=== PATIENT | female | born 1965 | race Caucasian/White ===

== ENCOUNTER 2024-02-07 23:26 | Inpatient (IN) | payer MEDICAID ==
[~2024-02-07] VITALS: Ht 154.9 cm; Wt 51.0 kg
[2024-02-07 23:28] VITALS: BP_SYST 119; PULSE 113; RESP 20; TEMP 98.6; O2SAT 98
[2024-02-08] MEDS: NACL 0.9% 1,000 ML IV ONE (00:37)
[2024-02-08 00:39] LABS: BASOPHILS % (AUTO) 0.2 % (0.0-2.0); EOSINOPHILS % (AUTO) 0.1 % (0.0-4.0); HEMATOCRIT 35.4 % (36-48); HEMOGLOBIN 11.9 g/dL (12.0-16.0); LYMPHOCYTES # (AUTO) 0.2 K/uL (1.0-5.5); LYMPHOCYTES % (AUTO) 2.9 % (20.5-51.5); MEAN CORPUSCULAR HEMOGLOBIN 30 pg (27-31); MEAN CORPUSCULAR HGB CONC 34 % (32-36); MEAN CORPUSCULAR VOLUME 90 fL (79.0-98.0); MONOCYTES # (AUTO) 0.4 K/uL (0.0-1.0); MONOCYTES % (AUTO) 4.9 % (1.7-9.3); NEUTROPHILS % (AUTO) 91.9 % (40.0-70.0); PLATELET COUNT (AUTO) 212 K/uL (130-430); RED BLOOD CELL COUNT(AUTO) 3.95 MIL/uL (4.2-6.2); RED CELL DISTRIBUTION WIDTH 14.9 % (9.0-15.0); WHITE BLOOD COUNT (AUTO) 7.7 K/uL (4.8-10.8)
[2024-02-08 00:40] LABS: BLOOD GAS PH 7.409 (7.350-7.450)
[2024-02-08 00:41] LABS: ABG O2 SAT% ESTIMATE 95.9 % (94.0-100.0); BLOOD GAS BASE EXCESS -5.2 mmol/L (-3.0-3.0); BLOOD GAS HCO3 18.4 mmol/L (21.0-27.0); BLOOD GAS PCO2 29.7 mmHg (35.0-45.0); BLOOD GAS PO2 78.2 mmHg (75.0-100.0)
[2024-02-08 01:18] LABS: BILIRUBIN,URINE NEGATIVE (NEGATIVE); CLARITY/URINE CLEAR (CLEAR); COLOR,URINE YELLOW (YELLOW); GLUCOSE,URINE 3+ (NEGATIVE); KETONES,URINE 2+ (NEGATIVE); LEUKOCYTE ESTERASE ,URINE NEGATIVE (NEGATIVE); NITRITE, URINE NEGATIVE (NEGATIVE); PROTEIN URINE 1+ (NEGATIVE); UROBILINOGEN,URINE 0.2 (0.2-1.0)
[2024-02-08 01:27] LABS: BLOOD, URINE TRACE (NEGATIVE)
[2024-02-08 01:41] LABS: ALANINE AMINOTRANSFERASE 26 U/L (12-78); ANION GAP 16 (5-15); ASPARTATE AMINOTRANSFERASE 14 U/L (10-37); BILIRUBIN,DIRECT 0.1 mg/dL (0.0-0.3); CALCIUM 10.8 mg/dL (8.4-11.0); CARBON DIOXIDE 21 mmol/L (23-29); CHLORIDE 90 mmol/L (98-107); GFR AFRICAN AMERICAN 83 mL/min (>90); LIPASE 18 U/L (16-77); POTASSIUM 4.2 mmol/L (3.5-5.1); SODIUM SERUM 127 mmol/L (136-145); TOTAL BILIRUBIN 0.5 mg/dL (0.0-1.0); TOTAL PROTEIN, SERUM 8.1 g/dL (6.4-8.3); UREA NITROGEN, BLOOD 27 mg/dL (8-21)
[2024-02-08 01:42] LABS: GFR NON AFRICAN-AMERICAN 69 mL/min (>90)
[2024-02-08 01:43] LABS: GLUCOSE 467 mg/dL (74-106)
[2024-02-08 01:52] LABS: ACETONE, SERUM MODERATE (NEGATIVE)
[2024-02-08 01:57] LABS: BACTERIA,URINE None Seen /HPF (None Seen); RBC,URINE 20-50 /HPF (0-3)
[2024-02-08] MEDS ORDERED: ONDANSETRON HCL 4 MG/2 ML VIAL IVP PRN ×2 (02:00→07:45)
[2024-02-08] MEDS ORDERED: ATOR20TA64 PO (02:10)
[2024-02-08] MEDS ORDERED: METF-379 PO (02:10)
[2024-02-08] MEDS ORDERED: INSULIN REGULAR, HUMAN 10 UNITS/0.1 ML, 3 ML VIAL ONE ×3 (03:59→12:45)
[2024-02-08] MEDS: INSULIN REGULAR, HUMAN 100 UNITS/ML, 3 ML VIAL (humuLIN R) SUBCUT PRN (04:01)
[2024-02-08] MEDS ORDERED: MUPIROCIN 2% TOPICAL OINTMENT 22 GM NS PRN (07:45)
[2024-02-08] MEDS ORDERED: NALOXONE HCL 0.4 MG/ML AMP (NARCAN) IVP PRN ×2 (07:45)
[2024-02-08] MEDS ORDERED: ZOLPIDEM TARTRATE 5 MG TABLET PO PRN (07:45)
[2024-02-08] MEDS ORDERED: MORPHINE 2 MG/ML INJ. SYRINGE IVP PRN (07:45)
[2024-02-08] MEDS ORDERED: LORazepam 2 MG/ML VIAL IVP PRN (07:45)
[2024-02-08] MEDS ORDERED: MAGNESIUM SULFATE 50 ML IV PRN (07:45)
[2024-02-08] MEDS: NACL 0.9% 1,000 ML IV SCH (08:30)
[2024-02-08] MEDS ORDERED: ATORVASTATIN 20 MG TABLET PO SCH (09:00)
[2024-02-08] MEDS ORDERED: ATORVASTATIN 20 MG TABLET PO ONE (09:00)
[2024-02-08 11:20] LABS: INR 0.9 (0.8-1.2); PROTHROMBIN TIME 9.7 SECS (9.5-12.5)
[2024-02-08] MEDS: HEPARIN SODIUM,PORCINE 5,000 UNITS/ML VIAL SUBCUT SCH (11:40)
[2024-02-08] MEDS: MORPHINE 2 MG/ML INJ. SYRINGE IVP PRN ×2 (12:42→21:08)
[2024-02-08] MEDS: ATORVASTATIN 20 MG TABLET PO ONE (15:13)
[2024-02-08 18:54] VITALS: BP_SYST 138; PULSE 113; RESP 16; TEMP 98.4; O2SAT 95
[2024-02-08] MEDS: INSULIN GLARGINE 100 UNITS/ML, 10 ML VIAL SUBCUT SCH (21:31)
[2024-02-08 23:30] VITALS: BP_SYST 130; PULSE 94; RESP 19; TEMP 98; O2SAT 98
[2024-02-09] VITALS (7 sets, daily range): BP systolic 118–144; PULSE 90–110; RESP 16–17; TEMP 98.1–100.2; O2SAT 95–97
[2024-02-09 06:29] LABS: CALCIUM 9.3 mg/dL (8.4-11.0); CREATININE 0.53 mg/dL (0.55-1.30)
[2024-02-09 06:30] LABS: BASOPHILS % (AUTO) 0.3 % (0.0-2.0); EOSINOPHILS % (AUTO) 0.7 % (0.0-4.0); HEMATOCRIT 32.1 % (36-48); HEMOGLOBIN 10.8 g/dL (12.0-16.0); LYMPHOCYTES # (AUTO) 0.3 K/uL (1.0-5.5); LYMPHOCYTES % (AUTO) 7.8 % (20.5-51.5); MEAN CORPUSCULAR HEMOGLOBIN 30 pg (27-31); MEAN CORPUSCULAR HGB CONC 34 % (32-36); MEAN CORPUSCULAR VOLUME 89 fL (79.0-98.0); MONOCYTES # (AUTO) 0.3 K/uL (0.0-1.0); MONOCYTES % (AUTO) 7.4 % (1.7-9.3); NEUTROPHILS # (AUTO) 3.6 K/uL (1.8-7.7); NEUTROPHILS % (AUTO) 83.8 % (40.0-70.0); PLATELET COUNT (AUTO) 152 K/uL (130-430); RED BLOOD CELL COUNT(AUTO) 3.63 MIL/uL (4.2-6.2); RED CELL DISTRIBUTION WIDTH 14.9 % (9.0-15.0); WHITE BLOOD COUNT (AUTO) 4.3 K/uL (4.8-10.8)
[2024-02-09] MEDS ORDERED: cloNIDine HCL 0.1 MG TABLET PO ONE (06:45)
[2024-02-09] MEDS: ATORVASTATIN 20 MG TABLET PO SCH (08:14)
[2024-02-09] MEDS: ACETAMINOPHEN 325 MG TABLET PO PRN (08:15)
[2024-02-09] MEDS: cefTRIAXone 1 GM IVPB PREMIX 50 ML IV SCH (14:44)
[2024-02-09] MEDS: INSULIN GLARGINE 100 UNITS/ML, 10 ML VIAL SUBCUT SCH (20:57)
[2024-02-10] VITALS: BP_SYST 118; PULSE 99; RESP 16; TEMP 99; O2SAT 96
[2024-02-10 06:17] LABS: BASOPHILS % (AUTO) 0.4 % (0.0-2.0); EOSINOPHILS # (AUTO) 0.1 K/uL (0.0-0.4); HEMATOCRIT 30.8 % (36-48); HEMOGLOBIN 10.2 g/dL (12.0-16.0); LYMPHOCYTES # (AUTO) 0.5 K/uL (1.0-5.5); LYMPHOCYTES % (AUTO) 8.1 % (20.5-51.5); MEAN CORPUSCULAR HEMOGLOBIN 29 pg (27-31); MEAN CORPUSCULAR HGB CONC 33 % (32-36); MEAN CORPUSCULAR VOLUME 88 fL (79.0-98.0); MONOCYTES # (AUTO) 0.6 K/uL (0.0-1.0); MONOCYTES % (AUTO) 10.3 % (1.7-9.3); NEUTROPHILS # (AUTO) 4.7 K/uL (1.8-7.7); NEUTROPHILS % (AUTO) 80.2 % (40.0-70.0); PLATELET COUNT (AUTO) 160 K/uL (130-430); RED BLOOD CELL COUNT(AUTO) 3.49 MIL/uL (4.2-6.2); RED CELL DISTRIBUTION WIDTH 14.9 % (9.0-15.0); WHITE BLOOD COUNT (AUTO) 5.9 K/uL (4.8-10.8)
[2024-02-10 06:50] LABS: CALCIUM 9.2 mg/dL (8.4-11.0); CREATININE 0.52 mg/dL (0.55-1.30)
[2024-02-10 07:53] LABS: POTASSIUM 2.7 mmol/L (3.5-5.1)
[2024-02-10 10:00] VITALS: O2SAT 99
[2024-02-10 11:47] VITALS: BP_SYST 116; PULSE 91; RESP 16; TEMP 97.7; O2SAT 96
[2024-02-10] MEDS: POTASSIUM CHLORIDE 20 MEQ TABLET.ER PO PRN (12:49)
[2024-02-10] MEDS: KCL 20 mEq in 100 mL (PREMIX) 200 ML IV SCH (12:49)
[2024-02-10] MEDS: POTASSIUM CHLORIDE 10 MEQ TABLET.ER PO ONE (13:06)
[2024-02-10 16:00] VITALS: BP_SYST 121; PULSE 84; RESP 17; TEMP 98; O2SAT 95
[2024-02-10 20:00] VITALS: BP_SYST 119; PULSE 92; RESP 18; TEMP 97.9; O2SAT 96
[2024-02-10 21:50] VITALS: O2SAT 96
[2024-02-11] VITALS: BP_SYST 123; PULSE 92; RESP 18; TEMP 97.4; O2SAT 96
[2024-02-11 07:16] LABS: CALCIUM 8.7 mg/dL (8.4-11.0); CREATININE 0.48 mg/dL (0.55-1.30); POTASSIUM 3.8 mmol/L (3.5-5.1)
[2024-02-11 07:22] LABS: BASOPHILS % (AUTO) 0.3 % (0.0-2.0); EOSINOPHILS # (AUTO) 0.1 K/uL (0.0-0.4); EOSINOPHILS % (AUTO) 1.2 % (0.0-4.0); HEMATOCRIT 30.3 % (36-48); HEMOGLOBIN 10.2 g/dL (12.0-16.0); LYMPHOCYTES # (AUTO) 0.7 K/uL (1.0-5.5); LYMPHOCYTES % (AUTO) 7.7 % (20.5-51.5); MEAN CORPUSCULAR HEMOGLOBIN 30 pg (27-31); MEAN CORPUSCULAR HGB CONC 34 % (32-36); MEAN CORPUSCULAR VOLUME 89 fL (79.0-98.0); MONOCYTES # (AUTO) 0.8 K/uL (0.0-1.0); NEUTROPHILS # (AUTO) 7.1 K/uL (1.8-7.7); NEUTROPHILS % (AUTO) 81.8 % (40.0-70.0); PLATELET COUNT (AUTO) 226 K/uL (130-430); RED BLOOD CELL COUNT(AUTO) 3.43 MIL/uL (4.2-6.2); RED CELL DISTRIBUTION WIDTH 15.1 % (9.0-15.0); WHITE BLOOD COUNT (AUTO) 8.6 K/uL (4.8-10.8)
[2024-02-11 08:14] VITALS: BP_SYST 131; PULSE 89; RESP 18; TEMP 96.6; O2SAT 97
[2024-02-11 08:28] VITALS: O2SAT 97
[2024-02-11 11:20] VITALS: BP_SYST 108; PULSE 83; RESP 16; TEMP 98.3; O2SAT 97
[2024-02-11 15:20] VITALS: BP_SYST 118; PULSE 88; RESP 16; TEMP 97.5; O2SAT 96
[2024-02-11] MEDS: DOCUSATE SODIUM 100 MG CAPSULE PO PRN (17:14)
[2024-02-11 19:45] VITALS: BP_SYST 128; PULSE 89; RESP 18; TEMP 97.2; O2SAT 97
[2024-02-12] VITALS: BP_SYST 119; PULSE 94; RESP 16; TEMP 98.7; O2SAT 95
[2024-02-12 07:34] LABS: BASOPHILS % (AUTO) 0.4 % (0.0-2.0); EOSINOPHILS # (AUTO) 0.1 K/uL (0.0-0.4); EOSINOPHILS % (AUTO) 0.8 % (0.0-4.0); HEMATOCRIT 29.6 % (36-48); HEMOGLOBIN 9.8 g/dL (12.0-16.0); LYMPHOCYTES # (AUTO) 0.8 K/uL (1.0-5.5); LYMPHOCYTES % (AUTO) 7.4 % (20.5-51.5); MEAN CORPUSCULAR HEMOGLOBIN 29 pg (27-31); MEAN CORPUSCULAR HGB CONC 33 % (32-36); MEAN CORPUSCULAR VOLUME 88 fL (79.0-98.0); MONOCYTES # (AUTO) 0.5 K/uL (0.0-1.0); MONOCYTES % (AUTO) 4.7 % (1.7-9.3); NEUTROPHILS % (AUTO) 86.7 % (40.0-70.0); PLATELET COUNT (AUTO) 302 K/uL (130-430); RED BLOOD CELL COUNT(AUTO) 3.36 MIL/uL (4.2-6.2); RED CELL DISTRIBUTION WIDTH 14.9 % (9.0-15.0); WHITE BLOOD COUNT (AUTO) 10.4 K/uL (4.8-10.8)
[2024-02-12 08:00] VITALS: BP_SYST 130; PULSE 90; RESP 18; TEMP 98.6; O2SAT 94; O2SAT 96
[2024-02-12 08:13] LABS: CALCIUM 8.5 mg/dL (8.4-11.0); CREATININE 0.59 mg/dL (0.55-1.30); POTASSIUM 3.2 mmol/L (3.5-5.1)
[2024-02-12] MEDS: ACETAMINOPHEN 325 MG TABLET PO PRN (15:22)
[2024-02-12 16:00] VITALS: BP_SYST 119; PULSE 89; RESP 17; TEMP 98.3; O2SAT 97
[2024-02-12] MEDS ORDERED: CIPR500T5 PO (16:23)
[2024-02-12 20:00] VITALS: BP_SYST 136; PULSE 95; RESP 16; TEMP 97.8; O2SAT 95
[2024-02-13] VITALS: BP_SYST 125; PULSE 81; RESP 16; TEMP 98.1; O2SAT 96
[2024-02-13 07:00] VITALS: O2SAT 96
[2024-02-13 07:52] LABS: BASOPHILS # (AUTO) 0.1 K/uL (0.0-0.2); EOSINOPHILS # (AUTO) 0.1 K/uL (0.0-0.4); EOSINOPHILS % (AUTO) 0.5 % (0.0-4.0); HEMATOCRIT 29.9 % (36-48); HEMOGLOBIN 9.9 g/dL (12.0-16.0); LYMPHOCYTES # (AUTO) 0.8 K/uL (1.0-5.5); LYMPHOCYTES % (AUTO) 7.4 % (20.5-51.5); MEAN CORPUSCULAR HEMOGLOBIN 29 pg (27-31); MEAN CORPUSCULAR HGB CONC 33 % (32-36); MEAN CORPUSCULAR VOLUME 89 fL (79.0-98.0); MONOCYTES # (AUTO) 0.5 K/uL (0.0-1.0); MONOCYTES % (AUTO) 4.3 % (1.7-9.3); NEUTROPHILS # (AUTO) 9.9 K/uL (1.8-7.7); NEUTROPHILS % (AUTO) 86.8 % (40.0-70.0); PLATELET COUNT (AUTO) 346 K/uL (130-430); RED BLOOD CELL COUNT(AUTO) 3.38 MIL/uL (4.2-6.2); RED CELL DISTRIBUTION WIDTH 15.1 % (9.0-15.0); WHITE BLOOD COUNT (AUTO) 11.4 K/uL (4.8-10.8)
[2024-02-13 08:00] VITALS: BP_SYST 149; PULSE 94; RESP 18; TEMP 97.5; O2SAT 97
[2024-02-13 08:12] LABS: CALCIUM 8.5 mg/dL (8.4-11.0); CREATININE 0.59 mg/dL (0.55-1.30); POTASSIUM 3.4 mmol/L (3.5-5.1)
[2024-02-13 11:10] VITALS: BP_SYST 139; PULSE 88; RESP 16; TEMP 97.9; O2SAT 98
[2024-02-13 15:48] VITALS: BP_SYST 136; PULSE 97; RESP 20; TEMP 97.8; O2SAT 97
== END 2024-02-13 15:57 | disposition home or self-care (01) | DRG 468 ==
LOC: SED 23:26 → SMU 02-08 01:54
PROVIDERS: ADMIT Family Medicine; ATTEND Family Medicine
PROC: 0T9B70Z Drainage of Bladder with Drainage Device, Via Natural or Artificial Opening (ICD-10-PCS; principal; 2024-02-09)
DX: N32.0 Bladder-neck obstruction (principal); E11.10 Type 2 diabetes mellitus with ketoacidosis without coma; E43 Unspecified severe protein-calorie malnutrition; N13.6 Pyonephrosis; E11.65 Type 2 diabetes mellitus with hyperglycemia; E87.1 Hypo-osmolality and hyponatremia; D64.9 Anemia, unspecified; E78.5 Hyperlipidemia, unspecified; Z79.84 Long term (current) use of oral hypoglycemic drugs; Z79.899 Other long term (current) drug therapy; Z68.21 Body mass index [BMI] 21.0-21.9, adult
CPT/HCPCS: 36415; 36600; 70160; 76770; 80048; 80076; 81000; 81001; 81015; 82009; 82803; 82948; 83037; 83690; 83735; 85025; 85610; 85730; 87045-TC; 87046; 87086; 87186; 96375; 97110-GP; 97112-GP; 97116-GP; 97530-GP; 99285; J0696; J1644; J1815; J2270; J3480

== ENCOUNTER 2024-02-18 19:18 | Emergency (ER) | payer MEDICAID ==
[~2024-02-18] VITALS: Ht 154.9 cm; Wt 51.3 kg
[~2024-02-18 19:18] MED LIST: ATOR20TA64 PO; CIPR500T5 PO; METF-379 PO
[2024-02-18 19:45] VITALS: BP_SYST 116; PULSE 104; RESP 19; TEMP 100.6; O2SAT 96
[2024-02-18] MEDS: VANCOMYCIN HCL 1,000 MG in D5W 250 ML IV ONE (20:30)
[2024-02-18] MEDS: ACETAMINOPHEN 500 MG TABLET PO ONE (20:42)
[2024-02-18 20:57] LABS: BASOPHILS # (AUTO) 0.1 K/uL (0.0-0.2); BASOPHILS % (AUTO) 1.1 % (0.0-2.0); EOSINOPHILS % (AUTO) 0.2 % (0.0-4.0); HEMATOCRIT 30.5 % (36-48); HEMOGLOBIN 10.2 g/dL (12.0-16.0); LYMPHOCYTES # (AUTO) 0.9 K/uL (1.0-5.5); LYMPHOCYTES % (AUTO) 6.5 % (20.5-51.5); MEAN CORPUSCULAR HEMOGLOBIN 29 pg (27-31); MEAN CORPUSCULAR HGB CONC 33 % (32-36); MEAN CORPUSCULAR VOLUME 88 fL (79.0-98.0); MONOCYTES # (AUTO) 0.3 K/uL (0.0-1.0); MONOCYTES % (AUTO) 2.6 % (1.7-9.3); NEUTROPHILS # (AUTO) 11.9 K/uL (1.8-7.7); NEUTROPHILS % (AUTO) 89.6 % (40.0-70.0); PLATELET COUNT (AUTO) 284 K/uL (130-430); RED BLOOD CELL COUNT(AUTO) 3.46 MIL/uL (4.2-6.2); RED CELL DISTRIBUTION WIDTH 15.2 % (9.0-15.0); WHITE BLOOD COUNT (AUTO) 13.3 K/uL (4.8-10.8)
[2024-02-18] MEDS ORDERED: VANCOMYCIN HCL 1000 MG/VIAL IV ONE (21:07)
[2024-02-18] MEDS: NS 1000 ML IV.SOLN IV ONE (21:23)
[2024-02-18] MEDS: cefTRIAXone 1 GM IVPB PREMIX 50 ML IV ONE (21:23)
[2024-02-18 21:34] LABS: ALBUMIN 1.9 g/dL (3.4-4.8); BILIRUBIN,DIRECT 0.1 mg/dL (0.0-0.3); CALCIUM 8.7 mg/dL (8.4-11.0); CREATININE 0.72 mg/dL (0.55-1.30); TOTAL BILIRUBIN 0.4 mg/dL (0.0-1.0); TOTAL PROTEIN, SERUM 7.2 g/dL (6.4-8.3)
[2024-02-18] MEDS: VANCOMYCIN HCL 1,000 MG in NS 250 ML IV ONE (22:30)
[2024-02-18 22:50] LABS: BILIRUBIN,URINE NEGATIVE (NEGATIVE); BLOOD, URINE 1+ (NEGATIVE); CLARITY/URINE CLEAR (CLEAR); COLOR,URINE YELLOW (YELLOW); GLUCOSE,URINE 3+ (NEGATIVE); KETONES,URINE 2+ (NEGATIVE); LEUKOCYTE ESTERASE ,URINE NEGATIVE (NEGATIVE); NITRITE, URINE NEGATIVE (NEGATIVE); PROTEIN URINE NEGATIVE (NEGATIVE); UROBILINOGEN,URINE 0.2 (0.2-1.0)
[2024-02-18] MEDS: INSULIN REGULAR, HUMAN 10 UNITS/0.1 ML, 3 ML VIAL IVP ONE (22:56)
[2024-02-18 23:00] LABS: BACTERIA,URINE RARE /HPF (None Seen)
[2024-02-19 00:48] VITALS: BP_SYST 116; PULSE 90; RESP 19; TEMP 98; O2SAT 96
[2024-02-20] MEDS ORDERED: METF-379 PO (18:39)
[2024-02-20] MEDS ORDERED: NITR-85 PO (19:20)
== END 2024-02-19 00:48 | disposition left against medical advice (07) ==
LOC: SED 19:18
DX: A41.9 Sepsis, unspecified organism (principal); E11.65 Type 2 diabetes mellitus with hyperglycemia; R10.84 Generalized abdominal pain; R11.2 Nausea with vomiting, unspecified; Z20.822 Contact with and (suspected) exposure to COVID-19; Z87.442 Personal history of urinary calculi; Z79.899 Other long term (current) drug therapy; Z79.2 Long term (current) use of antibiotics
CPT/HCPCS: 99284; 96365; 96367; 96366; 96375; 87426; 80076; 80048; 81001; 83690; 85025; 85610; 85730; 87040; 87086; 84484; 36415; 93005; 82948; 83605; J0696; J1815; J3370; 81000; 81015

== ENCOUNTER 2024-02-20 16:04 | Emergency (ER) | payer MEDICAID ==
[~2024-02-20] VITALS: Ht 154.9 cm; Wt 51.3 kg
[2024-02-20 16:14] VITALS: BP_SYST 99; PULSE 90; RESP 18; TEMP 98.3; O2SAT 96
[2024-02-20 17:00] LABS: BASOPHILS % (AUTO) 0.6 % (0.0-2.0); EOSINOPHILS # (AUTO) 0.1 K/uL (0.0-0.4); EOSINOPHILS % (AUTO) 1.1 % (0.0-4.0); HEMATOCRIT 26.8 % (36-48); HEMOGLOBIN 9.1 g/dL (12.0-16.0); LYMPHOCYTES # (AUTO) 0.9 K/uL (1.0-5.5); LYMPHOCYTES % (AUTO) 11.8 % (20.5-51.5); MEAN CORPUSCULAR HEMOGLOBIN 30 pg (27-31); MEAN CORPUSCULAR HGB CONC 34 % (32-36); MEAN CORPUSCULAR VOLUME 88 fL (79.0-98.0); MONOCYTES # (AUTO) 0.4 K/uL (0.0-1.0); MONOCYTES % (AUTO) 4.8 % (1.7-9.3); NEUTROPHILS # (AUTO) 6.5 K/uL (1.8-7.7); NEUTROPHILS % (AUTO) 81.7 % (40.0-70.0); PLATELET COUNT (AUTO) 237 K/uL (130-430); RED BLOOD CELL COUNT(AUTO) 3.07 MIL/uL (4.2-6.2); RED CELL DISTRIBUTION WIDTH 15.3 % (9.0-15.0)
[2024-02-20] MEDS: NACL 0.9% 1,000 ML IV ONE (17:08)
[2024-02-20 17:18] LABS: ANION GAP 3 (5-15); CALCIUM 8.2 mg/dL (8.4-11.0); CARBON DIOXIDE 33 mmol/L (23-29); CHLORIDE 97 mmol/L (98-107); CREATININE 0.72 mg/dL (0.55-1.30); GFR AFRICAN AMERICAN 108 mL/min (>90); GLUCOSE 382 mg/dL (74-106); POTASSIUM 4.1 mmol/L (3.5-5.1); SODIUM SERUM 133 mmol/L (136-145); UREA NITROGEN, BLOOD 15 mg/dL (8-21)
[2024-02-20 17:21] LABS: PROTHROMBIN TIME 10.2 SECS (9.5-12.5)
[2024-02-20 17:22] LABS: ALCOHOL, BLOOD < 3 mg/dL (<10); GFR NON AFRICAN-AMERICAN 89 mL/min (>90)
[2024-02-20 18:01] LABS: BILIRUBIN,URINE NEGATIVE (NEGATIVE); BLOOD, URINE 2+ (NEGATIVE); CLARITY/URINE CLEAR (CLEAR); COLOR,URINE YELLOW (YELLOW); GLUCOSE,URINE 3+ (NEGATIVE); KETONES,URINE 1+ (NEGATIVE); LEUKOCYTE ESTERASE ,URINE TRACE (NEGATIVE); NITRITE, URINE NEGATIVE (NEGATIVE); PROTEIN URINE NEGATIVE (NEGATIVE); UROBILINOGEN,URINE 0.2 (0.2-1.0)
[2024-02-20] MEDS: INSULIN REGULAR, HUMAN 10 UNITS/0.1 ML, 3 ML VIAL IVP ONE (18:10)
[2024-02-20 18:15] LABS: BARBITURATE, URINE NEGATIVE (NEG <=200); BENZODIAZEPINE, URINE NEGATIVE (NEG <=150); CANNABINOID, URINE NEGATIVE (NEG <=50); COCAINE, URINE NEGATIVE (NEG <=150); METHAMPHETAMINES SCREEN,URINE NEGATIVE (NEG <=500); OPIATE, URINE NEGATIVE (NEG <=100); PHENCYCLIDINE SCREEN,URINE NEGATIVE (NEG <=25); URINE AMPHETAMINE NEGATIVE (NEG <=500); URINE METHADONE NEGATIVE (NEG <=200); URINE OXYCODONE SCREEN NEGATIVE (NEG <=100)
[2024-02-20 18:16] LABS: UR TRICYCLIC ANTIDEPRESSANTS NEGATIVE (NEG <=300)
[2024-02-20] MEDS ORDERED: METF-379 PO (18:39)
[2024-02-20 18:47] LABS: BACTERIA,URINE MODERATE /HPF (None Seen)
[2024-02-20] MEDS ORDERED: NITR-85 PO (19:20)
[2024-02-20 19:26] VITALS: BP_SYST 111; PULSE 90; RESP 18; TEMP 98.3; O2SAT 96
== END 2024-02-20 19:26 | disposition home or self-care (01) ==
LOC: SED 16:04
DX: R53.1 Weakness (principal); E11.65 Type 2 diabetes mellitus with hyperglycemia; D64.9 Anemia, unspecified; Z79.899 Other long term (current) drug therapy
CPT/HCPCS: 99284; 96374; 96361; 80307; 80048; 81000; 81001; 85025; 85610; 85730; 87086; 84484; 36415; 93005; 81015; G0482; J1815; J7030